=== PATIENT | female | born 1990 | race Caucasian/White ===

== ENCOUNTER 2021-05-04 11:31 | Emergency (ER) | payer OTHER ==
[~2021-05-04] VITALS: Ht 165.1 cm; Wt 54.4 kg
[2021-05-04] MEDS ORDERED: ONDANSETRON 4 MG/2 ML (SDV) Z0FRAN ONE (12:07)
[2021-05-04] MEDS ORDERED: ACETAMINOPHEN 500 MG TAB (TYLENOL) ONE (12:07)
[2021-05-04] MEDS ORDERED: LACTATED RINGERS 1,000 ML IV ONE (12:08)
[2021-05-04] MEDS ORDERED: fentaNYL INJ 100 MCG/2 ML AMP ONE (12:09)
[2021-05-04] MEDS ORDERED: IBUPROFEN 800 MG (MOTRIN) TAB PO ONE ×2 (12:10→12:15)
--- NOTE | 2021-05-04 12:14 | ED General ---
General Chief Complaint: Fever-Adult/Adol Stated Complaint: ABD PAIN, SOB,FEVER Nursing Triage Note: PRESENTS THIS AM WITH FEVER, EXTREME PAIN ADN SOB. PATIETN STATES SHE WOKE UP AROUND 0730 IN PAIN. AT WHICH TIME SHE EXPERIENCED NAUSEA WITH VOMITING AND PAIN WITH DEEP INAHALTION. Source of Information: Patient Exam Limitations: No Limitations (COLUMBA MENDIOLA APRN) History of Present Illness Date Seen by Provider: May 04, 2021 Time Seen by Provider: 12:12 Initial Comments To ER with fever, lower abdominal pain worsened with any movement, breathing. She is also had nausea and vomiting. This began as some periumbilical/right lower quadrant abdominal cramping last night, however today it is diffuse across the lower abdomen. She initially thought this was related to her menstrual period. She denies any other vaginal discharge. She denies . She did have a fever up to 101 at home and in fact she is 102 here. [place]. 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 Timing/Duration: 1-2 Days Severity: Moderate Associated Systoms: Fever/Chills, Nausea/Vomiting (COLUMBA MENDIOLA APRN) Allergies and Home Medications Allergies Coded Allergies: No Known Drug Allergies (Unverified , 05/04/21) Home Medications Cefuroxime Axetil 500 Mg Tablet, 500 MG PO BID Prescribed by: COLUMBA MENDIOLA on 05/04/21 1606 Ondansetron 8 Mg Tab.rapdis, 8 MG PO Q6H Prescribed by: COLUMBA MENDIOLA on 05/04/21 1606 Patient Home Medication List Home Medication List Reviewed: Yes (COLUMBA MENDIOLA APRN) Review of Systems Review of Systems Constitutional: see HPI, chills, fever EENTM: see HPI Respiratory: no symptoms reported Cardiovascular: no symptoms reported Gastrointestinal: abdominal pain, nausea, vomiting Genitourinary: no symptoms reported Musculoskeletal: no symptoms reported Skin: no symptoms reported Psychiatric/Neurological: No Symptoms Reported (COLUMBA MENDIOLA APRN) Past Udrzxpp-Fwcpdn-Xeklky Hx Past Medical History Last Menstrual Period: May 02, 2021 (COLUMBA MENDIOLA APRN) Physical Exam Vital Signs Vital Signs - First Documented 05/04/21 11:35 Temp 39.2 Pulse 148 Resp 18 B/P (MAP) 119/77 (91) Pulse Ox 97 O2 Delivery Nasal Cannula O2 Flow Rate 2.00 (STEHPEN BERTRAND MD) Vital Signs Capillary Refill : Less Than 3 Seconds (COLUMBA MENDIOLA APRN) Height, Weight, BMI Height: '" Weight: lbs. oz. kg; 19.00 BMI Method: General Appearance: Thin, Other (Sinus tachycardia with a heart rate of 130. Oxygen was a little low at 94% and she reports shortness of breath but this is likely secondary to the abdominal pain as she states that it hurts to take a deep breath. Blood pressure is adequate at 119/77. She has diffuse peritoneal signs.) Eyes: Bilateral Eye Normal Inspection, Bilateral Eye PERRL Neck: Full Range of Motion, Normal Inspection Respiratory: No Accessory Muscle Use, No Respiratory Distress Cardiovascular: Normal Peripheral Pulses, Tachycardia Gastrointestinal: Soft, Abnormal Bowel Sounds (Hypoactive), Rebound, Tenderness Extremity: Normal Capillary Refill, Normal Inspection Neurologic/Psychiatric: Alert, Oriented x3 Skin: Normal Color, Warm/Dry Comments The pelvic exam done with Berto BUENROSTRO at the bedside is normal. There are IUD strings seen at the cervical os. There is minimal bloody discharge from the cervical os. No purulent material no cervical motion tenderness no intravaginal lesions (COLUMBA MENDIOLA APRN) Progress/Results/Core Measures Suspected Sepsis SIRS Temperature: Pulse: 148 Respiratory Rate: 18 Laboratory Tests 05/04/21 11:55: White Blood Count 17.3H Blood Pressure 119 /77 Mean: 91 Laboratory Tests 05/04/21 11:55: Creatinine 0.84, Platelet Count 195, Total Bilirubin 1.3H (COLUMBA MENDIOLA APRN) Results/Orders Lab Results Laboratory Tests Test 05/04/21 11:55 05/04/21 12:20 05/04/21 14:33 Range/Units White Blood Count 17.3 H 4.3-11.0 10^3/uL Red Blood Count 4.15 3.80-5.11 10^6/uL Hemoglobin 13.6 11.5-16.0 g/dL Hematocrit 40 35-52 % Mean Corpuscular Volume 97 80-99 fL Mean Corpuscular Hemoglobin 33 25-34 pg Mean Corpuscular Hemoglobin Concent 34 32-36 g/dL Red Cell Distribution Width 11.9 10.0-14.5 % Platelet Count 195 130-400 10^3/uL Mean Platelet Volume 10.1 9.0-12.2 fL Immature Granulocyte % (Auto) 1 % Neutrophils (%) (Auto) 90 H 42-75 % Lymphocytes (%) (Auto) 5 L 12-44 % Monocytes (%) (Auto) 5 0-12 % Eosinophils (%) (Auto) 0 0-10 % Basophils (%) (Auto) 0 0-10 % Neutrophils # (Auto) 15.5 H 1.8-7.8 10^3/uL Lymphocytes # (Auto) 0.8 L 1.0-4.0 10^3/uL Monocytes # (Auto) 0.9 0.0-1.0 10^3/uL Eosinophils # (Auto) 0.0 0.0-0.3 10^3/uL Basophils # (Auto) 0.1 0.0-0.1 10^3/uL Immature Granulocyte # (Auto) 0.1 0.0-0.1 10^3/uL Neutrophils % (Manual) 83 % Lymphocytes % (Manual) 7 % Monocytes % (Manual) 5 % Eosinophils % (Manual) 0 % Basophils % (Manual) 0 % Band Neutrophils 5 % Blood Morphology Comment NORMAL Sodium Level 132 L 135-145 MMOL/L Potassium Level 4.0 3.6-5.0 MMOL/L Chloride Level 99 98-107 MMOL/L Carbon Dioxide Level 23 21-32 MMOL/L Anion Gap 10 5-14 MMOL/L Blood Urea Nitrogen 14 7-18 MG/DL Creatinine 0.84 0.60-1.30 MG/DL Estimat Glomerular Filtration Rate 80 BUN/Creatinine Ratio 17 Glucose Level 106 H 70-105 MG/DL Calcium Level 9.9 8.5-10.1 MG/DL Corrected Calcium 8.5-10.1 MG/DL Total Bilirubin 1.3 H 0.1-1.0 MG/DL Aspartate Amino Transf (AST/SGOT) 18 5-34 U/L Alanine Aminotransferase (ALT/SGPT) 14 0-55 U/L Alkaline Phosphatase 60 40-136 U/L Total Protein 8.0 6.4-8.2 GM/DL Albumin 4.6 H 3.2-4.5 GM/DL Serum Test, Qualitative NEGATIVE NEGATIVE SARS-CoV-2 RNA (RT-PCR) Not Detected Not Detecte Urine Color YELLOW Urine Clarity CLEAR Urine pH 5.5 5-9 Urine Specific [place] 1.025 H 1.016-1.022 Urine Protein TRACE H NEGATIVE Urine Glucose (UA) NEGATIVE NEGATIVE Urine Ketones 2+ H NEGATIVE Urine Nitrite NEGATIVE NEGATIVE Urine Bilirubin 1+ H NEGATIVE Urine Urobilinogen 1.0 < = 1.0 MG/DL Urine Leukocyte Esterase 1+ H NEGATIVE Urine RBC (Auto) 2+ H NEGATIVE Urine RBC 0-2 /HPF Urine WBC 10-25 H /HPF Urine Squamous Epithelial Cells 2-5 /HPF Urine Crystals NONE /LPF Urine Bacteria NEGATIVE /HPF Urine Casts NONE /LPF Urine Mucus NEGATIVE /LPF Urine Culture Indicated YES Chlamydia DNA Probe Not Detected Not Detected Neisseria gonorrhoeae DNA Probe Dectected H Not Detected (STEPHEN BERTRAND MD) Micro Results Microbiology 05/04/21 Genital Culture - Preliminary, Resulted Culture In Progress 05/04/21 Wet Prep - Final, Resulted 05/04/21 Urine Culture - Final, Complete Mixed Bacterial Antonia (STEPHEN BERTRAND MD) Vital Signs/I&O 05/04/21 05/04/21 05/04/21 05/04/21 11:35 12:18 12:18 16:17 Temp 39.2 39.2 39.2 Pulse 148 63 Resp 18 18 B/P (MAP) 119/77 (91) 119/57 (91) Pulse Ox 97 95 O2 Delivery Nasal Cannula O2 Flow Rate 2.00 0 (STEPHEN BERTRAND MD) Vital Signs/I&O Capillary Refill : Less Than 3 Seconds (COLUMBA MENDIOLA APRN) Blood Pressure Mean: 91 Departure Communication (Admissions) Family Conversation 1439-her heart rate is down to 75, blood pressure 107 systolic. She rates her pain at 3 out of 4 and states that she feels a tremendous improvement since arrival. I do not find a cause for her infection other than the bladder infection. We will get a pelvic ultrasound and if this is normal she can probably go home with some empiric treatment for urinary tract infection. 1552-still alert and oriented very pleasant no distress overall feels better. Agrees to return for any worsening symptoms. Heart rate 65, oxygen saturation 96% blood pressure 101/57. NAME: TERRI ROSALES [facility] REC#: [id number] PT STATUS: REG ER : 1990 PHYSICIAN: COLUMBA MENDIOLA APRN ADMIT DATE: 05/04/21/ER Draft Date of Exam:05/04/21 CT ABD/PELV W (APPENDICITIS) PROCEDURE: CT abdomen and pelvis with contrast, rule out appendicitis. TECHNIQUE: Multiple contiguous axial images were obtained through the abdomen and pelvis after the administration of intravenous contrast. All CT scans use one or more of the following dose optimizing techniques: Automated exposure control, MA and/or KvP adjustment based on patient size and exam type or iterative reconstruction. INDICATION: Lower abdominal pain. COMPARISON: No prior studies are available for comparison. FINDINGS: The lung bases are clear. The liver and gallbladder are unremarkable. There is no biliary ductal dilatation. The pancreas and spleen are unremarkable. No adrenal mass is detected. Kidneys are unremarkable. Aorta is unremarkable. The bowel loops are normal in caliber. There is moderate stool throughout the colon. The appendix is visualized in the right lower quadrant and right pelvis and appears unremarkable. No definite CT evidence of acute appendicitis is detected. There is no free fluid or fluid collection. The bladder is unremarkable. There is an IUD within the endometrium. Vascular structures are prominent in the pelvis, which could be owing to pelvic congestion. The bony structures are nonacute. IMPRESSION: 1. No CT evidence of acute appendicitis. No definite urinary tract calculi or obstruction is seen. 2. Prominent pelvic vasculature which can be seen with pelvic congestion. 3. Moderate stool, perhaps owing to constipation. Dictated on workstation # [id number] Dict: 05/04/21 1352 Trans: 05/04/21 1401 [id number] Interpreted by: TIARRA PAINTER MD Electronically signed by: (COLUMBA MENDIOLA APRN) Impression Primary Impression: UTI (urinary tract infection) Disposition: 01 HOME, SELF-CARE Condition: Stable Departure-Patient Inst. Decision time for Depature: 15:56 (COLUMBA MENDIOLA APRN) Referrals: NO,LOCAL PHYSICIAN (PCP/Family) Primary Care Physician Patient Instructions: Urinary Tract Infection, Adult ED Add. Discharge Instructions: 1. Return to ER for any fevers that do not go away with Tylenol or Motrin, pain that does not go away with Tylenol or Motrin, vomiting that you cannot control or overall feeling poorly. All discharge instructions reviewed with patient and/or family. Voiced understanding. Scripts Cefuroxime Axetil (Cefuroxime) 500 Mg Tablet 500 MG PO BID, #10 TAB Prov: COLUMBA MENDIOLA APRN 05/04/21 Ondansetron (Ondansetron Odt) 8 Mg Tab.rapdis 8 MG PO Q6H, #14 TAB Prov: COLUMBA MENDIOLA APRN 05/04/21 ATTENDING PHYSICIAN NOTE: I was physically present as attending physician in the emergency department during the care of this patient, but I was not directly involved in the decision making or delivery of care for this patient. (STEPHEN BERTRAND MD) COLUMBA MENDIOLA APRN May 04, 2021 12:14 STEPHEN BERTRAND MD May 06, 2021 07:34
[2021-05-04] MEDS ORDERED: ACETAMINOPHEN 500 MG TAB (TYLENOL) PO ONE (12:15)
[2021-05-04] MEDS ORDERED: LACTATED RINGERS 1,000 ML IV SCH (12:15)
[2021-05-04] MEDS ORDERED: fentaNYL INJ 100 MCG/2 ML AMP IVP ONE (12:15)
[2021-05-04 12:18] LABS: BASOPHILS # (AUTO) 0.1 10^3/uL (0.0-0.1); BASOPHILS % (AUTO) 0 % (0-10); EOSINOPHILS % (AUTO) 0 % (0-10); HEMATOCRIT 40 % (35-52); HEMOGLOBIN 13.6 g/dL (11.5-16.0); LYMPHOCYTES # (AUTO) 0.8 10^3/uL (1.0-4.0); LYMPHOCYTES % (AUTO) 5 % (12-44); MEAN CORPUSCULAR HEMOGLOBIN 33 pg (25-34); MEAN CORPUSCULAR HGB CONC 34 g/dL (32-36); MEAN CORPUSCULAR VOLUME 97 fL (80-99); MEAN PLATELET VOLUME 10.1 fL (9.0-12.2); MONOCYTES # (AUTO) 0.9 10^3/uL (0.0-1.0); MONOCYTES % (AUTO) 5 % (0-12); NEUTROPHILS # (AUTO) 15.5 10^3/uL (1.8-7.8); NEUTROPHILS % (AUTO) 90 % (42-75); PLATELET COUNT 195 10^3/uL (130-400); WHITE BLOOD COUNT 17.3 10^3/uL (4.3-11.0)
[2021-05-04 12:22] LABS: ALBUMIN 4.6 GM/DL (3.2-4.5); CHLORIDE 99 MMOL/L (98-107); SODIUM 132 MMOL/L (135-145)
[2021-05-04 12:23] LABS: CALCIUM 9.9 MG/DL (8.5-10.1)
[2021-05-04 12:24] LABS: GLUCOSE 106 MG/DL (70-105)
[2021-05-04 12:26] LABS: BILIRUBIN,TOTAL 1.3 MG/DL (0.1-1.0); CARBON DIOXIDE 23 MMOL/L (21-32)
[2021-05-04 12:28] LABS: ALKALINE PHOSPHATASE 60 U/L (40-136); CREATININE SERUM 0.84 MG/DL (0.60-1.30); GFR ESTIMATED 80
[2021-05-04 12:29] LABS: BUN/CREATININE RATIO 17
[2021-05-04 12:31] LABS: ALANINE AMINOTRANSFERASE 14 U/L (0-55)
[2021-05-04 12:37] LABS: CLARITY,URINE CLEAR; COLOR,URINE YELLOW; GLUCOSE, URINE (UA) NEGATIVE (NEGATIVE); KETONES,URINE 2+ (NEGATIVE); LEUKOCYTE ESTERASE ,URINE 1+ (NEGATIVE); NITRITE,URINE NEGATIVE (NEGATIVE); PH,URINE 5.5 (5-9); PROTEIN,URINE TRACE (NEGATIVE)
[2021-05-04 12:59] LABS: BACTERIA,URINE NEGATIVE /HPF; BILIRUBIN,URINE 1+ (NEGATIVE); RBC,URINE 0-2 /HPF
[2021-05-04] MEDS ORDERED: IOHEXOL 350 MG/ML 100 ML (OMNIPAQUE 350) VIAL IV ONE (13:00)
[2021-05-04] MEDS ORDERED: CATHETER FLUSH 10 ML SYR IV PRN (13:00)
[2021-05-04] MEDS ORDERED: HOLD METFORMIN - RECEIVED CONTRAST 20 ML VIAL IV SCH (13:00)
[2021-05-04] MEDS ORDERED: NS 100 ML (IVPB) BAG IV ONE (13:00)
[2021-05-04 13:03] LABS: BAND NEUTROPHILS 5 %; BASOPHILS % (MANUAL) 0 %; EOSINOPHILS % (MANUAL) 0 %; LYMPHOCYTES % (MANUAL) 7 %; MONOCYTES % (MANUAL) 5 %; NEUTROPHILS % (MANUAL) 83 %; RBC MORPH NORMAL
--- NOTE | 2021-05-04 14:02 | Diagnostic Imaging Report ---
PROCEDURE: CT abdomen and pelvis with contrast, rule out appendicitis. TECHNIQUE: Multiple contiguous axial images were obtained through the abdomen and pelvis after the administration of intravenous contrast. All CT scans use one or more of the following dose optimizing techniques: Automated exposure control, MA and/or KvP adjustment based on patient size and exam type or iterative reconstruction. INDICATION: Lower abdominal pain. COMPARISON: No prior studies are available for comparison. FINDINGS: The lung bases are clear. The liver and gallbladder are unremarkable. There is no biliary ductal dilatation. The pancreas and spleen are unremarkable. No adrenal mass is detected. Kidneys are unremarkable. Aorta is unremarkable. The bowel loops are normal in caliber. There is moderate stool throughout the colon. The appendix is visualized in the right lower quadrant and right pelvis and appears unremarkable. No definite CT evidence of acute appendicitis is detected. There is no free fluid or fluid collection. The bladder is unremarkable. There is an IUD within the endometrium. Vascular structures are prominent in the pelvis, which could be owing to pelvic congestion. The bony structures are nonacute. IMPRESSION: 1. No CT evidence of acute appendicitis. No definite urinary tract calculi or obstruction is seen. 2. Prominent pelvic vasculature which can be seen with pelvic congestion. 3. Moderate stool, perhaps owing to constipation. Dictated by: Dictated on workstation # [id number]
[2021-05-04] MEDS ORDERED: cefTRIAXone 2,000 MG in WATER (STERILE) FOR INJECTION 20 ML IV ONE (14:15)
[2021-05-04] MEDS ORDERED: AZITHROMYCIN 250 MG TAB (ZITHROMAX) PO ONE (14:15)
[2021-05-04] MEDS ORDERED: ONDA8TAB13 PO (16:06)
[2021-05-04] MEDS ORDERED: CEFU500T63 PO (16:06)
[2021-05-04 16:17] VITALS: BP 119/57
--- NOTE | 2021-05-04 16:30 | Diagnostic Imaging Report ---
PROCEDURE: US pelvic (non OB). TECHNIQUE: Multiple real-time grayscale images were obtained over the pelvis in various projections, transabdominally. INDICATION: Lower abdominal pain. COMPARISON: CT abdomen and pelvis performed earlier the same date. FINDINGS: The uterus measures 9.2 x 3.7 x 4.6 cm. The endometrial stripe is not thickened and measures 0.6 cm. No focal uterine mass is seen. The right ovary measures 3.2 x 2.1 x 2.5 cm. There is normal color Doppler flow within the right ovary. The left ovary measures 3.6 x 2.2 x 2.4 cm. There is normal color Doppler flow within the left ovary. No adnexal mass is seen. No free fluid in the pelvis. IMPRESSION: Unremarkable sonographic appearance of the uterus and ovaries. Dictated by: Dictated on workstation # [id number]
== END 2021-05-04 16:15 | disposition home or self-care (01) ==
LOC: ER 11:35
DX: N39.0 Urinary tract infection, site not specified (principal); Z20.822 Contact with and (suspected) exposure to COVID-19
CPT/HCPCS: 36415; 74177; 76856; 80053; 81000; 84703; 85007; 85027; 87070; 87077; 87088; 87205; 87210; 87491; 87591; 87636